=== PATIENT | male | born 1990 | race Caucasian/White ===

== ENCOUNTER 2017-10-19 00:37 | Emergency (ER) | payer OTHER, SELFPAY ==
[2017-10-19] MEDS ORDERED: methylPREDNISolone Sod Succ/PF 125 MG/2 ML VIAL ONE (01:01)
[2017-10-19] MEDS ORDERED: diphenhydrAMINE 50 MG/ML VIAL ONE (01:01)
== END 2017-10-19 01:58 | disposition home or self-care (01) ==
LOC: NAV ERS 00:37
DX: T78.40XA Allergy, unspecified, initial encounter (principal); J01.90 Acute sinusitis, unspecified; J45.909 Unspecified asthma, uncomplicated; Z87.891 Personal history of nicotine dependence; Z79.899 Other long term (current) drug therapy
CPT/HCPCS: 96372; J1200; J2930